=== PATIENT | male | born 1950 | race Caucasian/White ===

== ENCOUNTER 2018-11-27 08:13 | Day surgery (SDC) | payer MEDICARE, OTHER ==
[2018-11-27] MEDS ORDERED: PROPOFOL 200 MG INJ (09:35)
[2018-11-27] MEDS ORDERED: MIDAZOLAM 1 MG/ML 2 ML INJ (09:36)
[2018-11-27] MEDS ORDERED: PROPOFOL 40 ML (09:36)
[2018-11-27] MEDS ORDERED: LIDOCAINE 2% (SDV) 5 ML INJ (09:36)
== END 2018-11-27 12:57 | disposition home or self-care (01) ==
LOC: GIL 08:13
DX: Z12.11 Encounter for screening for malignant neoplasm of colon (principal); D12.2 Benign neoplasm of ascending colon; K64.4 Residual hemorrhoidal skin tags; K64.8 Other hemorrhoids; I10 Essential (primary) hypertension
CPT/HCPCS: 45380; 88305